=== PATIENT | female | born 1940 | race Caucasian/White ===

== ENCOUNTER 2017-10-02 12:35 | Observation (INO) | payer OTHER ==
[~2017-10-02] VITALS: Ht 157.5 cm; Wt 75.8 kg
--- OUTSIDE RECORDS SUMMARY | 2017-10-02 12:37 | XMS REPORT | Clinical Summary ---
Author Author RONEL [facility] Address Unknown Phone Unavailable Care Team Providers Care Hospitalist Name Role Phone PCP Unavailable Allergies Active Allergy Reactions Severity Noted Date Comments Levofloxacin 06/19/2016 Redness at site Penicillins Hives 06/19/2016 Current Medications Prescription Sig. Disp. Refills Start End Date Status Date lisinopril Take 10 mg by mouth Active (PRINIVIL,ZESTRIL) 10 MG daily. tablet LEVOTHYROXINE SODIUM Take by mouth Pt does not Active (SYNTHROID ORAL) know the dose. . Active Problems Not on file Social History Tobacco Use Types Packs/Day Years Used Date Never Smoker Alcohol Use Drinks/Week oz/Week Comments No Sex Assigned at Date Recorded Not on file Last Filed Vital Signs Not on file Plan of Treatment Not on file Results Not on fileafter 10/01/2016
[2017-10-02] MEDS ORDERED: KETOROLAC TROMETHAMINE 30 MG/ML VIAL IV STA (13:01)
[2017-10-02 13:08] LABS: BASOPHILS # (AUTO) 0.1 (0.0-0.1); BASOPHILS % 1.3 % (0.0-1.0); EOSINOPHILS # (AUTO) 0.2 (0.0-0.4); EOSINOPHILS % 3.4 % (0.0-6.0); HEMATOCRIT 39.9 % (34.2-44.1); LYMPHOCYTES # (AUTO) 1.8 (1.0-3.2); LYMPHOCYTES % 32.2 % (18.0-39.1); MEAN CORPUSCULAR HEMOGLOBIN 29.6 pg (28-32); MEAN CORPUSCULAR HGB CONC 32.6 g/dL (31-35); MEAN CORPUSCULAR VOLUME 90.9 fL (81-99); MONOCYTES # (AUTO) 0.4 (0.2-0.8); MONOCYTES % 6.6 % (4.4-11.3); NEUTROPHILS # (AUTO) 3.2 (2.1-6.9); NEUTROPHILS % 56.3 % (38.7-80.0); PLATELET COUNT 184 x10e3/uL (140-360); RED BLOOD COUNT 4.39 x10e6/uL (3.6-5.1); RED CELL DISTRIBUTION WIDTH 13.7 % (11.7-14.4)
[2017-10-02 13:24] LABS: ALANINE AMINOTRANSFERASE 17 IU/L (0-55); ALBUMIN 3.5 g/dL (3.5-5.0); ALBUMIN/GLOBULIN RATIO 0.8 (0.8-2.0); ALKALINE PHOSPHATASE 64 IU/L (40-150); ANION GAP 13.6 mmol/L (8-16); BLOOD UREA NITROGEN 17 mg/dL (7-26); BUN/CREATININE RATIO 25 (6-25); CALCIUM 9.5 mg/dL (8.4-10.2); CARBON DIOXIDE 24 mmol/L (22-29); CHLORIDE 105 mmol/L (98-107); CHOL/HDL RATIO 3.5 (3.0-3.6); CHOLESTEROL 200 MD/DL (0-199); CREATININE, SERUM 0.69 mg/dL (0.57-1.11); EST GLOMERULAR FILTRATION RATE > 60 ML/MIN (60-); GLUCOSE 94 mg/dL (74-118); HDL CHOLESTEROL 57 MG/DL (40-60); LDL CHOLESTEROL 121 MG/DL (60-130); POTASSIUM 3.6 mmol/L (3.5-5.1); SODIUM 139 mmol/L (136-145); TRIGLYCERIDES 112 MG/DL (0-149)
--- NOTE | 2017-10-02 13:48 | Diagnostic Imaging Report ---
PROCEDURE: A single AP view of the chest. COMPARISON: None. INDICATIONS: CHEST PAIN FINDINGS: Lines/tubes: None. Lungs: Scarlike opacities or subsegmental atelectasis in the lingula. There is no evidence of pneumonia or pulmonary edema. Pleura: There is no pleural effusion or pneumothorax. Heart and mediastinum: The heart and the mediastinum are unremarkable. Bones: No acute bony abnormality. IMPRESSION: 1. No acute cardiopulmonary disease. Dictated by: Sohail Laura M.D. on 10/02/2017 at 13:49 Electronically approved by: Sohail Laura M.D. on 10/02/2017 at 13:49
[2017-10-02] MEDS ORDERED: NITROGLYCERIN 0.4 MG SUBL SL PRN ×2 (14:30→15:15)
[2017-10-02] MEDS ORDERED: METOPROLOL TARTRATE 25 MG TAB PO SCH (14:30)
[2017-10-02] MEDS ORDERED: SODIUM CHLORIDE FLUSH 10 ML SYR INJ PRN ×2 (14:30→15:15)
[2017-10-02] MEDS ORDERED: MORPHINE SULFATE 2 MG/ML SYR IV PRN ×3 (14:30→15:15)
[2017-10-02] MEDS ORDERED: ASPIRIN 81 MG CHEW TAB PO ONE (14:30)
[2017-10-02] MEDS ORDERED: FAMOTIDINE 20 MG TAB PO SCH (14:30)
--- OUTSIDE RECORDS SUMMARY | 2017-10-02 14:48 | XMS REPORT | Clinical Summary ---
Author Author RONEL [facility] Address Unknown Phone Unavailable Care Team Providers Care Graphic Art Designer Name Role Phone PCP Unavailable Allergies Active [...]
--- OUTSIDE RECORDS SUMMARY | 2017-10-02 14:48 | XMS REPORT ---
Author Author [facility] Address Unknown Phone Unavailable Care Team Providers Care Manager Produce Name Role Phone MARTIN JARAMILLO Unavailable Unavailable Problems This patient has no known problems. Allergies, Adverse Reactions, Alerts This patient has no known allergies or adverse reactions. Medications This patient has no known medications. Results Test Description Test Time Test Comments Text Results Atomic Results Result Comments CHEST SINGLE (PORTABLE) [place] [address] Patient Name: KRYSTA TRAN MR #: [id number] : 1940 Age/Sex: 77/F Req #: [id number] Adm Physician: Ordered by: MARTIN JARAMILLO MD Report #: [id number] Location: ER Room/Bed: Procedure: [id number] DX/CHEST SINGLE (PORTABLE) Exam Date: 10/02/17 Exam Time: 1315 REPORT STATUS: Signed PROCEDURE: A single AP view of the chest. COMPARISON: None. INDICATIONS: CHEST PAIN FINDINGS: Lines/tubes: None. Lungs: Scarlike opacities or subsegmental atelectasis in the lingula. There is no evidence of pneumonia or pulmonary edema. Pleura: There is no pleural effusion or pneumothorax. Heart and mediastinum: The heart and the mediastinum are unremarkable. Bones: No acute bony abnormality. IMPRESSION: 1. No acute cardiopulmonary disease. Dictated by: Speedy Peck M.D. on 10/02/2017 at 13:49 Electronically approved by: Speedy Peck M.D. on 10/02/2017 at 13:49 Dictated By: SPEEDY PECK MD [id number] Transcribed By: ANNELIESE on 10/02/17 1349 COPY TO: MARTIN JARAMILLO MD
[2017-10-02] MEDS: ASPIRIN 81 MG ENTERIC COATED PO SCH (15:55)
[2017-10-02] MEDS: METOPROLOL TARTRATE 25 MG TAB PO SCH (16:04)
[2017-10-02] MEDS: FAMOTIDINE 20 MG TAB PO SCH (16:04)
[2017-10-02 16:25] VITALS: BP 174/77
[2017-10-02 16:32] VITALS: BP 174/77
[2017-10-02] MEDS ORDERED: LISINOPRIL10 MG PO (17:23)
[2017-10-02] MEDS ORDERED: LEVOTHYROXINE75 MCG PO (17:24)
[2017-10-02 20:00] VITALS: BP 167/81
[2017-10-02] MEDS ORDERED: SIMVASTATIN 40 MG TAB PO SCH (21:00)
[2017-10-02 21:52] LABS: CREATINE KINASE 47 IU/L (29-168)
[2017-10-03] VITALS: BP 125/73
[2017-10-03] MEDS: FAMOTIDINE 20 MG TAB PO SCH (03:53)
[2017-10-03] MEDS: METOPROLOL TARTRATE 25 MG TAB PO SCH (03:53)
[2017-10-03 04:00] VITALS: BP 178/72
[2017-10-03 06:57] LABS: CREATINE KINASE 42 IU/L (29-168)
[2017-10-03 07:55] VITALS: BP 178/74
[2017-10-03] MEDS ORDERED: ASPIRIN 81 MG ENTERIC COATED PO SCH (09:00)
[2017-10-03] MEDS ORDERED: LISINOPRIL 10 MG TAB PO SCH (09:00)
[2017-10-03] MEDS: ASPIRIN 81 MG ENTERIC COATED PO SCH (09:21)
[2017-10-03 09:27] VITALS: BP 178/74
[2017-10-03] MEDS ORDERED: LISINOPRIL 20 MG TAB PO ONE (09:30)
--- NOTE | 2017-10-03 09:31 | Consultation ---
DATE OF CONSULTATION: October 02, 2017 CARDIOLOGY CONSULTATION REASON FOR CONSULTATION: Chest pain. REQUESTING PHYSICIAN: Dr. Jose David Sandoval HPI: This is a pleasant, 77-year-old female that presented with chest pain. According to the patient, on Sunday of this week she started having chest pain that felt like pressure on a scale of 5 out of 10 with no radiation. She also complained of nausea and vomiting. She went to see her PCP at [facility]. They did blood work, and she had a positive D-dimer, and she was sent to the emergency room for evaluation. She also had a CT scan done at [facility] that was negative for PE and showed a 3 x 5 mm right pulmonary nodule. She was still sent over here for evaluation. She had a chest x-ray done that was normal. Troponin times 3 was negative. EKG showed no ST abnormalities. She had cardiac catheterization done in 2012 that was normal at [facility]. PAST MEDICAL HISTORY: Hypertension, lupus, vitamin D deficiency, pericarditis, osteoarthritis, carotid stenosis, hypothyroidism, and Sjogren's disease. PAST SURGICAL HISTORY: Appendectomy, tonsillectomy, hysterectomy, cardiac catheterization with no intervention. FAMILY HISTORY: Noncontributory. SOCIAL HISTORY: No smoking. No drinking. She lives at home with her . MEDICATION: See med list. ALLERGIES: SHE IS ALLERGIC TO PENICILLIN AND LEVAQUIN. REVIEW OF SYSTEMS: Negative except those mentioned above. PHYSICAL EXAMINATION GENERAL: She is alert, awake and oriented times 3. VITALS: Temperature 97, heart rate 63, blood pressure 170/73, respirations 16. Oxygen saturation is 98% on room air. HEENT: Mucous membranes moist. NECK: Supple. LUNGS: Bilaterally clear to auscultation. CARDIOVASCULAR: S1 and S2 present. ABDOMEN: Soft. EXTREMITIES: No edema. NEUROLOGIC: Intact. LABS: Sodium 139, potassium 3.6, chloride 105, CO2 24, BUN 17, creatinine 0.69. Glucose 94. White blood cells 5.59, hemoglobin 13.0, hematocrit 39.9, platelets 184. IMPRESSION 1. Chest pain. 2. Hypertension. 3. History of lupus. 4. History of hypothyroidism. 5. History of right pulmonary nodule from CT scan at [facility]. ASSESSMENT AND PLAN: She had an echocardiogram done with EF 60%. Troponin was negative. She refused cardiac stress test. She wanted to be followed up at [facility], and she already has a stress test scheduled over there. Okay to discontinue from a cardiac standpoint. Further cardiac workup pending clinical course. Thank you for this consultation. Dictated by Almaz Griffin NP. Job#: [id number]
[2017-10-03] MEDS ORDERED: LISINOPRIL 10 MG TAB PO ONE (09:45)
--- NOTE | 2017-10-03 10:15 | Discharge Summary ---
The patient was in observation. RESIDENTIAL ASSISTANT: Dr. Sloan Patricia FINAL DIAGNOSES 1. Hypertensive urgency. 2. Chest pain. SUMMARY: A 77-year-old female came in with hypertensive urgency. The patient has not had her pressure medication adjustment for some time now. She was on lisinopril 10 mg daily. The patient is now on lisinopril 10 mg twice a day. She is stable. No chest pain. She does have an appointment with her primary care physician at [facility] for a stress test referral. The patient is stable. Discharged home today per patient wishes. She is stable. Cardiac enzymes negative. Lab work otherwise unremarkable. The patient will go home today. Job#: [id number] JANEEN
== END 2017-10-03 10:17 | disposition home or self-care (01) ==
LOC: ER 12:35 → ERHOLD 14:39 → IMCU 16:14
PROVIDERS: ADMIT Internal Medicine; ATTEND Internal Medicine
DX: R07.89 Other chest pain (principal); I16.0 Hypertensive urgency; M94.0 Chondrocostal junction syndrome [Tietze]; I10 Essential (primary) hypertension; E03.9 Hypothyroidism, unspecified; Z88.1 Allergy status to other antibiotic agents; Z88.0 Allergy status to penicillin; M32.9 Systemic lupus erythematosus, unspecified; R91.8 Other nonspecific abnormal finding of lung field
CPT/HCPCS: 36415 ×2; 71045; 80053; 80061; 82550 ×2; 82553 ×2; 83880; 84484 ×2; 85025; 93005; 93306; 99285; G0378 ×2; J1885